=== PATIENT | female | born 1965 | race Caucasian/White ===

== ENCOUNTER 2023-07-05 18:23 | Emergency (ER) | payer MEDICAID, SELFPAY ==
--- NOTE | ~2023-07-05 | XR_ITS ---
EXAMINATION: XR CHEST CLINICAL INFORMATION: Shortness of breath. COMPARISON: None available. TECHNIQUE: Frontal view of the chest was obtained. FINDINGS: No significant abnormality is noted involving the heart, lungs, mediastinum, bony thorax or soft tissues. XR/XR chest 1V IMPRESSION: Unremarkable examination.
--- NOTE | ~2023-07-05 | CT_ITS ---
EXAMINATION: CT ANGIOGRAM OF THE CHEST WITH AND WITHOUT CONTRAST (CT PULMONARY ANGIOGRAM FOR PE) CLINICAL INFORMATION: Reason for Exam ovarian CA, tachycardic chest pain shortness of br COMPARISON: None available. TECHNIQUE: Prior to contrast administration, noncontrast localization images were obtained. Subsequently, multidetector volumetric imaging was performed from the thoracic inlet to below the diaphragms following the administration of 80 mL Omnipaque 350 intravenous contrast. No contrast reaction reported Sagittal, coronal, and MIP oblique sagittal reformatted images were obtained on the CT workstation, uploaded to PACS, and reviewed. This CT examination was performed using dose optimization techniques as appropriate, variously including the following: *Automated exposure control *Adjustment of mA and/or kV according to patient size (this includes techniques or standardized protocols for targeted exams where dose is matched to indication/reason for exam; i.e. extremities or head) *Use of iterative reconstruction technique Total exam dose-length product 440 mGy-cm FINDINGS: QUALITY OF STUDY/CONTRAST BOLUS: Satisfactory. PULMONARY ARTERIES: No pulmonary emboli. THORACIC AORTA: No aneurysm. LUNG: The lungs are well-expanded with platelike atelectasis in the lingula. Rest of lungs are clear. PLEURA: No pleural effusion or pneumothorax. MEDIASTINUM: Normal heart size. No pericardial effusion. No hilar or mediastinal lymphadenopathy. No evidence of septal bowing or right heart strain. CORONARY ARTERY CALCIFICATION: None visualized on this study. CHEST WALL/AXILLA: No axillary or internal mammary lymphadenopathy. OSSEOUS STRUCTURES: No acute or suspicious osseous abnormality. UPPER ABDOMEN: Visualized liver, spleen, pancreas appear unremarkable. There is a left adrenal 3.6 x 2.5 x 3.5 cm lesion measuring 7 Hounsfield units suggestive of benign etiology No reflux of contrast into the hepatic veins to suggest elevated right heart pressures. CT/CT angio chest PE protocol IMPRESSION: 1. No evidence of PE. 2. No evidence of aortic aneurysm. 3. Left adrenal benign lesion. VTE: negative.
--- NOTE | 2023-07-05 18:24 | ECG_ITS ---
Test Reason : CHEST PAIN Blood Pressure : / mmHG Vent. Rate : 089 BPM Atrial Rate : 089 BPM P-R Int : 156 ms QRS Dur : 094 ms QT Int : 348 ms P-R-T Axes : 026 039 052 degrees QTc Int : 423 ms Normal sinus rhythm Intra-ventricular conduction delay Otherwise normal ECG No previous ECGs available Referred By: Generic ED Physician Electronically Signed By:MILAD HO MD
--- NOTE | 2023-07-05 18:33 | ED.GENADULT ---
HPI - General Adult General Chief complaint: Chest Pain Stated complaint: Cp, SOB, abnormal labs, had imaging @ CD hrs ago Time Seen by Provider: 07/05/23 19:06 Source: patient Mode of arrival: ambulatory Limitations: no limitations History of Present Illness HPI narrative: 49-year-old female scripts for with history of ovarian cancer and hypertension patient was seen at Was seen at [facility] per reports obtained from charge nurse was HTN, tachy and had negative trop deltas. Any persistent chest pain dyspnea with exertion and elevated blood pressure not on blood pressure medications. Patient had an x-ray here labs are drawn. Of note the patient left [facility] against medical advice and came here. Related Data Allergies Allergy/AdvReac Type Severity Reaction Status Date / Time Sulfa (Sulfonamide Allergy Unknown RASH Verified 01/21/15 00:00 Antibiotics) Review of Systems Review of Systems: Review of systems: General: Patient denies any fever chills recent illness or falls Musculoskeletal: Denies back pain or body aches or other injuries HEENT: denies headache, runny nose, ear pain Respiratory: shortness of breath, no cough Cardiovascular: chest pain no palpitations : denies dysuria, frequency Abdomen: no nausea vomiting denies abdominal pain Extremities: no swelling, no pain Skin: no diaphoresis Yes all other systems are reviewed and are negative PMFSH Social History Social History Smoked in Last 30 Days: No Advance Directives: No Advance Directives Information Provided: No Physical Exam ED Vital Signs: Vital Signs - 24 hr 07/05/23 18:38 07/05/23 19:38 07/05/23 20:19 Temperature 97.3 F Pulse Rate 92 84 83 Respiratory Rate 20 17 Blood Pressure 191/102 H 159/80 H 177/71 H Pulse Oximetry 97 97 Oxygen Delivery Method Room Air Room Air 07/05/23 22:16 Temperature Pulse Rate 78 Respiratory Rate Blood Pressure 160/79 H Pulse Oximetry 98 Oxygen Delivery Method Room Air BMI result Body Mass Index 40.2 General: Well-appearing well-nourished in no signs of distress HEENT: Normocephalic atraumatic Neck: No signs of JVD, no masses no tenderness or lymphadenopathy Cardiovascular: Regular rate and rhythm Respiratory: Clear to auscultation bilaterally Abdomen: Soft nontender no masses Extremities: Normal pedal pulses no signs of edema Skin: Dry warm no rashes Back: No tenderness full ROM Course Course Course Narrative: This is an RME: Additional HPI, ROS, PE not included below will be deferred to primary provider. 57 yo f hx HTN, ovarian Ca presents w/ cp, sob X few days worsening. Reports dyspnea on exertion and reports substernal chest pressure. On Lovenox Was seen at [facility] per reports obtained from charge nurse was HTN, tachy and had negative trop deltas. Plan- labs, imaging Reevaluation(s) Reevaluation #1: Patient still pending 2nd troponin and CT at this time signed out pending these results and disposition Medications Administered Discontinued Medications Generic Name Dose Route Start Last Admin Trade Name Freq PRN Reason Stop Dose Admin Ceftriaxone Sodium 1 gm/ 50 mls @ 100 mls/hr 07/05/23 20:00 07/05/23 20:56 Sodium Chloride IV 07/05/23 20:29 Infused ONCE ONE Infusion Iohexol 65 ml 07/05/23 20:48 07/05/23 20:49 Iohexol 350 Mg/Ml 100 Ml Infus..Btl IV 07/05/23 20:49 65 ml ONCE ONE Administration Medical Decision Making Medical Decision Making [facility] Narrative: Will send patient for CTA I will check labs x-ray was unremarkable on arrival. 00:06 Dr. Smiley's Note: I assumed care of this patient from my colleague, Dr. Martínez at 21:00 hours. Patient is a 57-year-old female History of ovarian cancer, pulmonary embolism, hypothyroidism, fibromyalgia, GERD, PCOS, asthma, peripheral edema who presents emergency department for evaluation of constant burning chest chest pain in her anterior chest and dyspnea on exertion times 10 days. patient states that she did see her providers at the [facility] and was noted to have an elevated blood pressure of 200/101 elevated heart rate of 101. She states that she also had O2 saturation the dropped to 89% on exertion. She was referred to [facility] emergency department where she states that she had a workup but due to the significant amount of time that she had to wait in the emergency department she left against medical advice. She was told today by her doctors a [facility] at her troponin was high and that she should go back to emergency department for evaluation. patient states she did have significant peripheral edema which was treated with torsemide and she had an echocardiogram 6 months ago which she states was normal. My interpretation the patient's evaluation is as follows: Patient's laboratory evaluation revealed a normal CBC, elevated glucose 134, mild elevation in her AST, ALT and alk-phos of 36, 47 and 133. First troponin was 42 repeat 3 hour troponin was 46. Urinalysis and microscopic revealed 11-20 WBCs but no bacteria, the patient is asymptomatic with no frequency, urgency or dysuria. CT pulmonary angiogram revealed no PE and no other significant abnormalities. Patient's blood pressure readings did reveal isolated elevated systolic blood pressures ranging from 155-170 with normal diastolic pressures. At this time I do not have a clear etiology for the patient's symptoms however I believe that she will need an outpatient workup that should include echocardiogram to make sure that she does not have cardiomyopathy and possible stress test. I did discuss this with the patient. Patient was also advised to get an automatic blood pressure cuff to check your blood pressures 3 times a week for the next 2 weeks. She was advised to write these readings down and discuss them with her PCP to determine if she needs treatment for her elevated blood pressure-she does take metoprolol for tachycardia. Differential Diagnosis Differential Diagnoses: The differential diagnosis associated with the presentation includes ACS PE pneumonia cold bronchitis chest wall pain metastasis Admission/Observation Consideration of admission/observation: Escalation of care including admission/observation considered Lab Data [facility] Lab Attestation statement: I reviewed the patient's lab results. See [facility] above for my discussion of the patient's labs 07/05/23 19:33 07/05/23 19:33 Labs: Lab Results 07/05/23 07/05/23 07/05/23 Range/Units 19:27 19:33 22:19 WBC 10.5 (4.8-10.8) X10*3/uL RBC 4.99 (4.20-5.50) X10*6/uL Hgb 14.1 (12.0-16.0) g/dl Hct 42.7 (37.0-47.0) % MCV 85.6 (80.0-98.0) fL MCH 28.3 (27.0-33.0) pg MCHC 33.0 (31.0-35.0) g/dl RDW 14.9 (11.0-16.0) % Plt Count 208 (160-400) X10*3/uL MPV 10.3 (9.4-12.3) fL Immature Gran % (Auto) 0.7 H (0.0-0.4) % Neut % (Auto) 78.3 H (45-73) % Lymph % (Auto) 14.5 L (20-40) % [place] % (Auto) 4.8 (2-11) % Eos % (Auto) 1.2 (0-4) % Baso % (Auto) 0.5 (0-2) % Lymph # (Auto) 1.5 (1.2-4.9) X10*3/uL [place] # (Auto) 0.5 (0.1-1.2) X10*3/uL Eos # (Auto) 0.1 (0.0-0.4) X10*3/uL Baso # (Auto) 0.1 (0.0-0.2) X10*3/uL Abs Immat Gran (auto) 0.07 H (0.00-0.03) X10*3/uL Absolute Neuts (auto) 8.2 (2.0-8.3) x10*3/uL Absolute Nucleated RBC 0.000 (0.0-0.012) X10*3/uL Nucleated RBC % (auto) 0.0 (0.0-0.2) /100WBC D-Dimer High Sensitivty < 150 NG/ML Sodium 138 (135-145) mmol/L Potassium 3.6 (3.3-5.1) mmol/L Chloride 98 (96-108) mmol/L Carbon Dioxide 29 (22-29) mmol/L Anion Gap 15 (12-20) BUN 15 (9-16) mg/dL Creatinine 0.92 (0.5-1.4) mg/dL Estim Creat Clear Calc 96.7 Estimated GFR > 60 Random Glucose 134 H (60-115) mg/dL Calcium 10.2 (8.4-10.2) mg/dL Magnesium 2.0 (1.6-2.6) mg/dL Total Bilirubin 0.4 (0.0-1.0) mg/dL AST 36 H (5-31) U/L ALT 47 H (0-31) U/L Alkaline Phosphatase 133 H (39-117) U/L Troponin I High Sens 42.3 H 46.0 H (<3.5-17.0) ng/L Total Protein 7.9 (6.5-8.0) g/dL Albumin 4.6 (3.5-5.0) g/dL Urine Color Yellow Urine Appearance Clear Urine pH 5.5 (5.0-9.0) Ur Specific [place] 1.025 (1.005-1.025) Urine Protein Negative (Neg-Trace) mg/dL Urine Glucose (UA) Negative (Negative) mg/dL Urine Ketones Negative (Negative) mg/dL Urine Blood Negative (Negative) Urine Nitrite Negative (Negative) Ur Leukocyte Esterase Moderate (2+) H (Negative) Urine RBC 0-2 (0-2) /HPF Urine WBC 11-20 H (0-5) /HPF Ur Squamous Epith Cells 3-5 (0-2) /HPF Urine Bacteria None Seen (None Seen) Hyaline Casts 0-2 (0-2) /LPF COVID-19 (MEHRAN) Negative (Negative) COVID-19 Clin Com See Note Influenza Type A (SATNAM) Negative (Negative) Influenza Type B (SATNAM) Negative (Negative) Influenza A & B Note See Note Independent Interpretation I performed an independent interpretation of an: EKG Interpretation: my interpretation patient's 12 EKG done at 18:28 hours is as follows: Normal sinus rhythm rate of 89 with normal CA, QRS duration QTC interval, no ST segment elevation, no ST segment depression, no previous EKG for comparison Radiology Impression Discussion of test interpretation with radiology: I have reviewed the radiologist's reading. Radiologist Impression: CT angio chest PE protocol IMPRESSION: 1. No evidence of PE. 2. No evidence of aortic aneurysm. 3. Left adrenal benign lesion. VTE: negative. Dictated By: Charles Holland MD Discharge Plan Discharge Clinical Impression: Chest pain, Acute dyspnea Patient Disposition: Home, Self-Care Additional Instructions: your blood work today was unremarkable, he had a normal CBC, CMP and urinalysis did reveal white blood cells but no bacteria -I do not think that have urinary tract infection your EKG was normal. The CT pulmonary angiogram PE protocol did not reveal any blood clots in your lungs and there were no other abnormality seen on the CT scan by the radiologist. The radiology impression is below in you can show this to your doctors at [facility]. At this time, I do not have a clear cause for symptoms however I do think that you should get an echocardiogram as an outpatient and possibly also a stress test as an outpatient to further evaluate your symptoms. Your [facility] doctors can arrange these tests as an outpatient. I want you to by an automatic blood pressure cuff and take your blood pressures in the mornings on Mondays, Wednesdays and Fridays for the next 2 weeks. Write these blood pressures down and reviewed them with your doctor To determine if you need to be on another blood pressure medicine or if your metoprolol needs to be increased. Follow-up with your doctor in 2 days. Please return to the emergency department if your symptoms get worse or if you develop any symptoms that are concerning to you. CT angio chest PE protocol
--- NOTE | 2023-07-05 18:35 | MHC.EDTECH ---
Patient ekg taken in triage and was read by Provider .
[2023-07-05 18:38] VITALS: BP 191/102; PULSE 92; RESP 20; TEMP 36.3; O2SAT 97; BMI 40.2
[2023-07-05 19:33] LABS: Appearance Urine Clear; Color Urine Yellow; Glucose Urine UA Negative (Negative); Leukocyte Esterase Urine Moderate (2+) (Negative); Nitrite Urine Negative (Negative); PH 5.5 (5.0-9.0); Specific Gravity - Urine 1.025 (1.005-1.025); UMIC TRIGGER UACC YES; Urine Blood Negative (Negative); Urine Ketones Negative (Negative); Urine Protein Negative (Neg-Trace)
[2023-07-05 19:38] VITALS: BP 159/80; PULSE 84; O2SAT 97
[2023-07-05 19:38] LABS: Bacteria Urine None Seen (None Seen); Hyaline Casts Urine 0-2 /LPF (0-2); RBC Urine 0-2 /HPF (0-2); UACC Culture Trigger YES
[2023-07-05 19:39] LABS: MANUAL DIFF FLAG NO
[2023-07-05 19:40] LABS: Basophils Absolute Auto 0.1 X10*3/uL (0.0-0.2); Basophils Percent Auto 0.5 % (0-2); Eosinophils Absolute Auto 0.1 X10*3/uL (0.0-0.4); Eosinophils Percent Auto 1.2 % (0-4); Hematocrit 42.7 % (37.0-47.0); Hemoglobin 14.1 g/dl (12.0-16.0); Imm Gran Abs Auto 0.07 X10*3/uL (0.00-0.03); Imm Gran Pct Auto 0.7 % (0.0-0.4); Lymphocytes Absolute Auto 1.5 X10*3/uL (1.2-4.9); Lymphocytes Percent Auto 14.5 % (20-40); Mean Corpuscular Hemoglobin 28.3 pg (27.0-33.0); Mean Corpuscular Volume 85.6 fL (80.0-98.0); Mean Platelet Volume 10.3 fL (9.4-12.3); Monocytes Absolute Auto 0.5 X10*3/uL (0.1-1.2); Monocytes Percent Auto 4.8 % (2-11); Neutrophils Absolute Auto 8.2 x10*3/uL (2.0-8.3); Neutrophils Percent Auto 78.3 % (45-73); Platelet Count 208 X10*3/uL (160-400); Red Blood Count 4.99 X10*6/uL (4.20-5.50); Red Cell Distribution Width 14.9 % (11.0-16.0); White Blood Count 10.5 X10*3/uL (4.8-10.8)
[2023-07-05 19:49] LABS: D Dimer High Sensitivity < 150 NG/ML
[2023-07-05 19:58] LABS: COVID-19 Test Negative (Negative); IDNOW Serial# 08D9AD1C; IDNOW Serial# BCCEAD1C; Influenza A Negative (Negative); Influenza B2 Negative (Negative)
[2023-07-05 20:01] LABS: Alanine Aminotransferase 47 U/L (0-31); Albumin Level 4.6 g/dL (3.5-5.0); Alkaline Phosphatase 133 U/L (39-117); Anion Gap 15 (12-20); Aspartate Amino Transferase 36 U/L (5-31); Bilirubin Total 0.4 mg/dL (0.0-1.0); Blood Urea Nitrogen 15 mg/dL (9-16); Calcium 10.2 mg/dL (8.4-10.2); Carbon Dioxide 29 mmol/L (22-29); Chloride 98 mmol/L (96-108); Creatinine Clr Calc Pharmacy 96.7; Estimated Glomerular Filt Rate > 60; Glucose Random 134 mg/dL (60-115); Potassium 3.6 mmol/L (3.3-5.1); Sodium 138 mmol/L (135-145); Total Protein 7.9 g/dL (6.5-8.0)
[2023-07-05 20:08] LABS: Troponin-I High Sensitivity 42.3 ng/L (<3.5-17.0)
[2023-07-05] MEDS: cefTRIAXone sodium 1 GM in 0.9 % Sodium Chloride 50 ML IV (20:18)
[2023-07-05 20:19] VITALS: BP 177/71; PULSE 83; RESP 17
[2023-07-05] MEDS: iohexoL 350 MG/ML 100 ML INFUS..BTL 65 ML IV (20:49)
[2023-07-05 22:16] VITALS: BP 160/79; PULSE 78; O2SAT 98
[2023-07-06 00:16] VITALS: BP 181/93; PULSE 84; RESP 18; TEMP 36.4; O2SAT 98
--- NOTE | 2023-07-06 00:17 | MHC.EDTECH ---
This tech took over care of patient at 2300,hourly rounds and vitals completed, BP is elevated at 181/93 MD and RN Sheela aware. Patient is awaiting discharge at this time.
== END 2023-07-06 00:24 | disposition home or self-care (01) ==
PROVIDERS: Physician Assistant; Student in an Organized Health Care Education/Training Program; Emergency Provider Emergency Medicine Emergency Medical Services; PCP Family Medicine
DX: R07.89 Other chest pain (principal); R06.02 Shortness of breath; R79.89 Other specified abnormal findings of blood chemistry; R00.0 Tachycardia, unspecified; Z11.52 Encounter for screening for COVID-19; Z20.822 Contact with and (suspected) exposure to COVID-19; Z79.899 Other long term (current) drug therapy
CPT/HCPCS: 36415; 71045; 71275; 80053; 81001; 83735; 84484; 85025; 85379; 87086; 87502; 87635; 93005; 96365; 99284; 99285; J0696; Q9967